=== PATIENT | male | born 1985 | race Caucasian/White ===

== ENCOUNTER 2020-09-24 09:19 | Emergency (ER) | payer MEDICARE, MEDICAID ==
--- NOTE | 2020-09-24 09:41 | EDM.PDOC ---
ED HPI GENERAL MEDICAL PROBLEM - General Chief Complaint: Abdominal Pain Stated Complaint: ABDOMINAL PAIN Time Seen by Provider: 09/24/20 09:36 Source of Information: Reports: Patient, EMS, RN. Denies: Old Records History Limitations: Reports: Other (no old records) - History of Present Illness INITIAL COMMENTS - FREE TEXT/NARRATIVE: 35 yo male here via EMS with a complaint of R sided abdominal pain. Got 100 mcg of Fentanyl IV per EMS en route. Has had some nausea, not currently. Sx's began about 7-8 hrs ago. The pain seems to be gradually worsening. No pHx of any abdominal surgeries. Does have a hx of heavy alcohol use. Had a normal BM recently. No fever. Onset: Gradual Onset Date: 09/24/20 Onset Time: 03:00 Duration: Hour(s):, Getting Worse Location: Reports: Abdomen Quality: Reports: Ache Severity: Moderate Improves with: Reports: None Worsens with: Reports: Other (time) Context: Reports: Other (See HPI) Associated Symptoms: Reports: Nausea/Vomiting (no vomiting). 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 below) (Fentanyl per EMS) Right Middle Abdomen Pain Score (Numeric/FACES): 7 - Related Data Allergies Allergy/AdvReac Type Severity Reaction Status Date / Time Sulfa (Sulfonamide Allergy Cannot Verified 09/24/20 09:30 Antibiotics) Remember Home Meds: Home Meds ARIPiprazole [Abilify] 2 mg PO DAILY 09/24/20 [History] Dextroamphetamine/Amphetamine [Adderall 20 mg Tablet] 20 mg PO DAILY 09/24/20 [History] PARoxetine [Paxil] 60 mg PO DAILY 09/24/20 [History] Zolpidem Tartrate [Ambien] 10 mg PO BEDTIME 09/24/20 [History] busPIRone [Buspar] 30 mg PO BID 09/24/20 [History] lamoTRIgine [Lamictal] 2.5 tab PO DAILY 09/24/20 [History] Past Medical History Gastrointestinal History: Reports: Irritable Bowel Syndrome Psychiatric History: Reports: Anxiety, Depression Social & Family History - Tobacco Use Tobacco Use Status *Q: Current Every Day Tobacco User Years of Tobacco use: 10 Packs/Tins Daily: 0.5 - Caffeine Use Caffeine Use: Reports: Coffee - Recreational Drug Use Recreational Drug Use: No ED ROS GENERAL - Review of Systems Review Of Systems: See Below Constitutional: Reports: No Symptoms HEENT: Reports: No Symptoms Respiratory: Reports: No Symptoms Cardiovascular: Reports: No Symptoms GI/Abdominal: Reports: Abdominal Pain, Nausea. Denies: Black Stool, Bloody St ool, Constipation, Diarrhea, Distension, Hematemesis, Hematochezia, Vomiting : Reports: No Symptoms Musculoskeletal: Reports: No Symptoms Skin: Reports: No Symptoms ED EXAM, GI/ABD - Physical Exam Exam: See Below Exam Limited By: No Limitations General Appearance: Alert, WD/WN, No Apparent Distress, Obese Eyes: Bilateral: Normal Appearance Ears: Normal External Exam, Normal Canal, Hearing Grossly Normal Nose: Normal Inspection, No Blood Throat/Mouth: Normal Inspection, Normal Lips, Normal Oropharynx, Normal Voice, No Airway Compromise Head: Atraumatic, Normocephalic Neck: Normal Inspection Respiratory/Chest: No Respiratory Distress, Lungs Clear, Normal Breath Sounds, No Accessory Muscle Use Cardiovascular: Regular Rate, Rhythm, No Edema GI/Abdominal Exam: Normal Bowel Sounds, Soft, No Distention, Tender (RUQ and epigastric areas). No: Non-Tender, Distended, Guarding, Rigid, Rebound Back Exam: Normal Inspection. No: CVA Tenderness (R), CVA Tenderness (L) Extremities: Normal Inspection, Normal Range of Motion, Non-Tender, No Pedal Edema Neurological: Alert, Oriented, CN II-XII Intact, Normal Cognition, No Motor/Sensory Deficits Psychiatric: Normal Affect, Normal Mood Skin Exam: Warm, Dry, Intact, Normal Color, No Rash Course - Vital Signs Last Recorded V/S: Last Vital Signs Temp 35.4 C L 09/24/20 09:22 Pulse 81 09/24/20 09:22 Resp 16 09/24/20 09:22 BP 153/85 H 09/24/20 09:22 Pulse Ox 95 09/24/20 09:22 - Orders/Labs/Meds Orders: Active Orders 24 hr Category Date Time Status Abdomen Ltd [US] Stat Exams 09/24/20 10:27 Ordered UA W/MICROSCOPIC [URIN] Stat Lab 09/24/20 09:35 Ordered Labs: Laboratory Tests 09/24/20 09/24/20 09/24/20 Range/Units 09:35 09:35 09:45 WBC 8.6 (4.5-11.0) K/uL RBC 5.01 (4.30-5.90) M/uL Hgb 15.3 H (12.0-15.0) g/dL Hct 46.3 (40.0-54.0) % MCV 92 (80-98) fL MCH 31 (27-31) pg MCHC 33 (32-36) % Plt Count 290 (150-400) K/uL Sodium 148 (140-148) mmol/L Potassium 4.0 (3.6-5.2) mmol/L Chloride 105 (100-108) mmol/L Carbon Dioxide 28 (21-32) mmol/L Anion Gap 14.9 H (5.0-14.0) mmol/L BUN 9 (7-18) mg/dL Creatinine 1.1 (0.8-1.3) mg/dL Est Cr Clr Drug Dosing 98.88 mL/min Estimated GFR (MDRD) > 60 (>60) Glucose 125 H (74-106) mg/dL Calcium 9.7 (8.5-10.1) mg/dL Total Bilirubin 0.4 (0.2-1.0) mg/dL AST 30 (15-37) U/L ALT 52 (12-78) U/L Alkaline Phosphatase 124 H (46-116) U/L C-Reactive Protein 0.40 H (0.0-0.3) mg/dL Total Protein 7.6 (6.4-8.2) g/dL Albumin 4.0 (3.4-5.0) g/dL Globulin 3.6 H (2.3-3.5) g/dL Albumin/Globulin Ratio 1.1 L (1.2-2.2) Lipase 106 (73-393) U/L Meds: Medications Discontinued Medications Generic Name Dose Route Start Last Admin Trade Name Freq PRN Reason Stop Dose Admin Al Hydroxide/Mg Hydroxide 15 0 ml 09/24/20 10:34 09/24/20 10:39 ml/ Lidocaine HCl 15 ml PO 09/24/20 10:35 30 ml ONETIME ONE Administration Ketorolac Tromethamine 30 mg 09/24/20 09:42 09/24/20 09:47 Ketorolac 30 Mg/Ml Sdv IVPUSH 09/24/20 09:43 30 mg ONETIME ONE Administration - Radiology Interpretation Free Text/Narrative:: GB ultrasound-small stone in neck - Re-Assessments/Exams Free Text/Narrative Re-Assessment/Exam: 09/24/20 10:53 Partial relief with IV Toradol, and a bit more relief with GI cocktail. Departure - Departure Time of Disposition: 11:50 Disposition: Home, Self-Care 01 Condition: Fair Clinical Impression: Gallstone (impacted) - Discharge Information *PRESCRIPTION DRUG MONITORING PROGRAM REVIEWED*: No *COPY OF PRESCRIPTION DRUG MONITORING REPORT IN PATIENT SARAH: No Instructions: Cholelithiasis, [id number] Referrals: PCP,None [Primary Care Provider] - Forms: ED Department Discharge Additional Instructions: Acetaminophen 1000 mg every 6 hrs as needed for pain relief. Eat clear liquids and a "NO FAT" diet. Call your doctor tomorrow to discuss a surgical referral if you would like to have your gallbladder taken out. Return as needed. Sepsis Event Note (ED) - Evaluation Sepsis Screening Result: No Definite Risk - Focused Exam Vital Signs: Vital Signs Temp Pulse Resp BP Pulse Ox 09/24/20 09:22 35.4 C L 81 16 153/85 H 95 - My Orders Last 24 Hours: My Active Orders 09/24/20 09:35 UA W/MICROSCOPIC [URIN] Stat 09/24/20 10:27 Abdomen Ltd [US] Stat - Assessment/Plan Last 24 Hours: My Active Orders 09/24/20 09:35 UA W/MICROSCOPIC [URIN] Stat 09/24/20 10:27 Abdomen Ltd [US] Stat
[2020-09-24] MEDS ORDERED: Ketorolac 30 MG/ML SDV IVPUSH ONE (09:42)
[2020-09-24] MEDS ORDERED: Alum Hydrox/Mag Hydrox/Simeth 15 ML, Lidocaine 2% 15 ML PO ONE ×2 (10:34)
--- NOTE | 2020-09-25 09:31 | US ---
Abdomen Ltd CLINICAL HISTORY: Right upper quadrant pain COMPARISON: None. TECHNIQUE: Real-time images were obtained through the right upper quadrant. FINDINGS: The liver is free of mass or biliary dilatation. There is normal hepatic echotexture. The gallbladder contains a small nonmobile echogenic focus in the gallbladder neck suspect for small stone or stones.. The common bile duct measures 3 mm. The pancreas is obscured. The right kidney has a normal appearance. The IVC is normal. IMPRESSION: Cholelithiasis
== END 2020-09-24 11:56 | disposition home or self-care (01) ==
LOC: JP.ED 09:19
DX: K80.20 Calculus of gallbladder without cholecystitis without obstruction (principal); Z72.0 Tobacco use; Z88.2 Allergy status to sulfonamides
CPT/HCPCS: 36415; 76705; 80053; 83690; 85027; 86140; 96374; 99284; A9270; J1885

== ENCOUNTER 2020-09-24 17:52 | Inpatient (IN) | payer MEDICARE, MEDICAID ==
--- NOTE | 2020-09-24 18:18 | PCM.HP.2 ---
H&P History of Present Illness - General Date of Service: 09/24/20 Source of Information: Patient, Old Records, Provider, RN Notes Reviewed History Limitations: Reports: No Limitations - History of Present Illness Initial Comments - Free Text/Narative: Mr. Westbrook is a 35-year-old gentleman who was admitted through the emergency department with right upper quadrant abdominal pain secondary to cholecystitis. He had been feeling well until early this morning when he noted onset of right upper quadrant abdominal pain described as a pressure. It gradually built in intensity till it was very severe, it did not radiate. Was associated with nausea and vomiting. He presented to the emergency department and on evaluation with ultrasound was noted to have a small stone in the neck of the gallbladder that was immobile. He was feeling somewhat better and was discharged home with instructions for outpatient follow-up. Pain reoccurred and he is come back to the emergency department. - Related Data Allergies/Adverse Reactions: Allergies Allergy/AdvReac Type Severity Reaction Status Date / Time Sulfa (Sulfonamide Allergy Cannot Verified 09/24/20 09:30 Antibiotics) Remember Home Medications: Home Meds ARIPiprazole [Abilify] 2 mg PO DAILY 09/24/20 [History] Cetirizine HCl [Allergy Relief] 10 mg PO DAILY 09/24/20 [History] Dextroamphetamine/Amphetamine [Adderall 20 mg Tablet] 20 mg PO DAILY 09/24/20 [History] Naproxen 375 mg PO DAILY 09/24/20 [History] Omeprazole 40 mg PO DAILY 09/24/20 [History] PARoxetine [Paxil] 60 mg PO DAILY 09/24/20 [History] Zolpidem Tartrate [Ambien] 10 mg PO BEDTIME 09/24/20 [History] busPIRone [Buspar] 30 mg PO BID 09/24/20 [History] lamoTRIgine [Lamictal] 2.5 tab PO DAILY 09/24/20 [History] Past Medical History Gastrointestinal History: Reports: Irritable Bowel Syndrome Psychiatric History: Reports: Anxiety, Depression Social & Family History - Caffeine Use Caffeine Use: Reports: Coffee H&P Review of Systems - Review of Systems: Review Of Systems: See Below General: Reports: Decreased Appetite. Denies: Fever, Chills HEENT: Reports: No Symptoms Pulmonary: Reports: No Symptoms Cardiovascular: Reports: No Symptoms Gastrointestinal: Reports: Abdominal Pain, Decreased Appetite, Distension, Nausea, Vomiting. Denies: Diarrhea, Difficulty Swallowing, Hematemesis, Hematochezia, Melena Genitourinary: Reports: No Symptoms Musculoskeletal: Reports: No Symptoms Skin: Reports: No Symptoms Psychiatric: Reports: No Symptoms Neurological: Reports: No Symptoms Hematologic/Lymphatic: Reports: No Symptoms Immunologic: Reports: No Symptoms Exam - Exam Exam: See Below - Exam Quality Assessment: DVT Prophylaxis General: Alert, Oriented, Cooperative, Moderate Distress HEENT: Conjunctiva Clear, Hearing Intact, Normal Nasal Septum, Posterior Pharynx Clear, Pupils Equal. No: Mucosa Moist & [place] Neck: Supple, Trachea Midline, +2 Carotid Pulse wo Bruit Lungs: Clear to Auscultation, Normal Respiratory Effort Cardiovascular: Regular Rate, Regular Rhythm, Normal S1, Normal S2. No: Systolic Murmur, Diastolic Murmur GI/Abdominal Exam: Soft, No Organomegaly, Tender. No: Distended, Guarding, Rigid, Rebound Back Exam: Normal Inspection, Full Range of Motion Extremities: Non-Tender, No Pedal Edema Skin: Warm, Dry, Intact Neurological: Cranial Nerves Intact, Strength Equal Bilateral, Normal Speech, Normal Tone, Sensation Intact Neuro Extensive - Mental Status: Alert, Oriented x3, Normal Mood/Affect, Normal Cognition, Memory Intact *Q Meaningful Use (ADM) - VTE Risk Assess *Q Each Risk Factor Represents 1 Point: Obesity ( BMI > 25 kg/m2) Total Score 1 Point Risk Factors: 1 Each Risk Factor Represents 2 Points: None Total Score 2 Point Risk Factors: 0 Each Risk Factor Represents 3 Points: None Total Score 3 Point Risk Factors: 0 Each Risk Factor Represents 5 Points: None Total Score 5 Point Risk Factors: 0 Venous Thromboembolism Risk Factor Score *Q: 1 Problem List Initiated/Reviewed/Updated: Yes Assessment/Plan Comment:: ASSESSMENT AND PLAN CHOLECYSTITIS-onset of pain earlier this morning. Improved during initial emergency department visit but now has reoccurred. Ultrasound shows evidence of stone at the neck of the gallbladder. -IV fluids for hydration -N.p.o. -Unasyn 1.5 g IV every 6 hours -Pain and nausea medication as needed -Dr. Tapia to see and assume care in a.m. BIPOLAR DISORDER-stable on current medications -Continue outpatient medications MAINTENANCE ISSUES -DVT prophylaxis; not indicated -GI prophylaxis; Protonix 40 mg IV daily -Haywood catheter; not indicated -Nutrition; n.p.o. -Nicotine dependence; nicotine patch CODE STATUS-FULL CODE ADMISSION STATUS-patient will be admitted to inpatient status, expect at least a 2 night hospital stay for evaluation and management of problems as outlined above. At the time of this admission I do not reasonably expected evaluation and management of this problem will require more than a 96 hour hospital stay. DISPOSITION-anticipate discharge to home after the hospital stay. PRIMARY CARE PROVIDER-Dr. Wiseman - Mortality Measure Prognosis:: Good
[2020-09-24] MEDS ORDERED: Polyethylene Glycol 3350 Powder 17 GM Packet PO PRN (18:26)
[2020-09-24] MEDS ORDERED: Sodium Chloride 0.9% 10 ML Syringe FLUSH PRN (18:26)
[2020-09-24] MEDS ORDERED: Ondansetron 4 MG/2 ML SDV IV PRN (18:26)
[2020-09-24] MEDS: Lactated Ringers 1,000 ML IV SCH (18:46)
[2020-09-24] MEDS: Pantoprazole 40 MG Vial IVPUSH SCH (18:47)
[2020-09-24] MEDS: HYDROmorphone 0.5 MG/0.5 ML Syringe IVPUSH PRN ×2 (18:49→21:38)
[2020-09-24] MEDS: Nicotine 14 MG/24 Hr Patch TRDERM SCH (18:49)
[2020-09-24] MEDS: Ampicillin/Sulbactam Na 3 GM in Sodium Chloride 0.9% 100 ML IV SCH (19:30)
[2020-09-24] MEDS: busPIRone 10 MG Tab PO SCH (21:22)
[2020-09-25] MEDS: HYDROmorphone 0.5 MG/0.5 ML Syringe IVPUSH PRN ×2 (02:00→07:40)
[2020-09-25] MEDS: Acetaminophen 325 MG Tab PO PRN ×2 (02:00→07:24)
[2020-09-25] MEDS: Lactated Ringers 1,000 ML IV SCH (02:07)
[2020-09-25] MEDS: Ampicillin/Sulbactam Na 3 GM in Sodium Chloride 0.9% 100 ML IV SCH ×4 (03:45→21:03)
[2020-09-25 05:07] LABS: CORONAVIRUS COVID-19 NAA NEGATIVE (NEGATIVE)
[2020-09-25] MEDS ORDERED: hydrOXYzine HCL 100 MG/2 ML SDV IM ONE (08:00)
[2020-09-25] MEDS ORDERED: Amphetamine/Dextroamphetamine Salts 10 MG Tab PO SCH (08:00)
--- NOTE | 2020-09-25 08:19 | PN ---
DATE OF SERVICE: 09/25/2020 SUBJECTIVE: Karely was asked to be seen by Troy Dumont MD, due to right upper quadrant abdominal pain secondary to cholecystitis and a small stone is in the neck of the gallbladder that was immobile. Karely states he went to the emergency room for increased pain, was evaluated, and then he was to see a surgeon in the clinic later in the week. was readmitted to the emergency department and then admitted to the hospital because when he got home, the pain increased and he was not able to handle it at home. He was admitted to [facility] and a consult was requested for cholecystitis and cholelithiasis. Karely states yesterday was the only time that he has ever had any pain in his right upper quadrant. He reports he has a headache now because of no caffeine. He is using Dilaudid for pain. Currently, n.p.o. REVIEW OF SYSTEMS: Remainder of review of systems negative for any pertinent positives and negatives. OBJECTIVE: GENERAL: Karely is a 35-year-old male, alert and orientated. VITAL SIGNS: Height 5 feet 11 inches, weight is 262. TPR is 97.9, 82, 15, blood pressure 101/59. HEENT: Negative. NECK: Supple. HEART: Regular rate and rhythm. LUNGS: Clear. ABDOMEN: Soft, nontender. EXTREMITIES: Without peripheral edema. NEUROLOGIC: Intact. PSYCHIATRIC: History of bipolar, but controlled. Mood and affect appropriate. ASSESSMENT: Cholecystitis, cholelithiasis, stone in neck of gallbladder. PLAN: 1. Schedule and have consent signed for laparoscopic possible open cholecystectomy, general anesthesia, TAP block, 09/25/2020. Case to follow. Richard Tapia MD, surgeon. 2. He may have his morning medication with sips of water. 3. Orders to be written postoperatively. 4. We will evaluate p.r.n. or in a.m. Yanelis Zarate PA-C /[id number]
[2020-09-25] MEDS ORDERED: Succinylcholine 200 MG/10 ML MDV ONE (08:32)
[2020-09-25] MEDS ORDERED: fentaNYL 250 MCG/5 ML SDV ONE ×2 (08:32→10:56)
[2020-09-25] MEDS ORDERED: Glycopyrrolate 0.2 MG/ML 5 ML MDV ONE (08:32)
[2020-09-25] MEDS ORDERED: Dexamethasone 4 MG/ML SDV ONE (08:32)
[2020-09-25] MEDS ORDERED: Propofol 200 MG/20 ML SDV ONE (08:32)
[2020-09-25] MEDS ORDERED: Ondansetron 4 MG/2 ML SDV ONE (08:32)
[2020-09-25] MEDS ORDERED: Rocuronium 50 MG/5 ML Vial ONE (08:32)
[2020-09-25] MEDS ORDERED: Neostigmine Methylsulfate 1 MG/ML 5 ML Syringe ONE (08:32)
[2020-09-25] MEDS ORDERED: Bupivacaine 0.5%/EPINEPHrine 1:200,000 50 ML MDV ONE (09:46)
[2020-09-25] MEDS ORDERED: Lactated Ringers 1,000 ML ONE (10:55)
[2020-09-25] MEDS ORDERED: fentaNYL 100 MCG/2 ML SDV ONE (11:21)
[2020-09-25] MEDS ORDERED: Labetalol 20 MG/4 ML Syringe ONE (11:40)
[2020-09-25] MEDS ORDERED: Morphine 4 MG/ML Syringe IVPUSH PRN (13:00)
[2020-09-25] MEDS ORDERED: Morphine 2 MG/ML SYRINGE IVPUSH PRN (13:00)
[2020-09-25] MEDS: PARoxetine 20 MG Tab PO SCH (13:01)
[2020-09-25] MEDS: lamoTRIgine 100 MG Tab PO SCH (13:01)
[2020-09-25] MEDS: busPIRone 10 MG Tab PO SCH ×2 (13:01→21:03)
[2020-09-25] MEDS: Cetirizine 10 MG Tab PO SCH (13:01)
[2020-09-25] MEDS: Amphetamine/Dextroamphetamine Salts 10 MG Cap.ER PO SCH (13:02)
[2020-09-25] MEDS: Nicotine 14 MG/24 Hr Patch TRDERM SCH ×2 (13:02→13:03)
[2020-09-25] MEDS: ARIPiprazole 10 MG Tab PO SCH (13:02)
[2020-09-25] MEDS: Acetaminophen/HYDROcodone 325-5 MG Tab PO PRN ×3 (13:10→21:40)
[2020-09-25] MEDS: Dextrose 5%-Lactated Ringers 1,000 ML IV SCH (14:59)
[2020-09-25] MEDS: Pantoprazole 40 MG Vial IVPUSH SCH (17:30)
[2020-09-25] MEDS: Zolpidem 5 MG Tab PO SCH (21:02)
[2020-09-26] MEDS: Dextrose 5%-Lactated Ringers 1,000 ML IV SCH (00:30)
[2020-09-26] MEDS: Acetaminophen/HYDROcodone 325-5 MG Tab PO PRN ×2 (01:32→05:33)
[2020-09-26] MEDS: Ampicillin/Sulbactam Na 3 GM in Sodium Chloride 0.9% 100 ML IV SCH ×4 (03:46→22:55)
[2020-09-26] MEDS ORDERED: Albuterol/Ipratropium 3.0-0.5 MG/3 ML Neb Soln NEB PRN (07:36)
[2020-09-26] MEDS ORDERED: Dextrose 5%-Lactated Ringers 1,000 ML IV SCH (07:40)
[2020-09-26] MEDS: Cyclobenzaprine 10 MG Tab PO PRN ×3 (08:00→22:54)
[2020-09-26] MEDS: Amphetamine/Dextroamphetamine Salts 10 MG Cap.ER PO SCH (08:01)
[2020-09-26] MEDS: Albuterol/Ipratropium 3.0-0.5 MG/3 ML Neb Soln NEB SCH ×3 (08:10→20:20)
[2020-09-26] MEDS: ARIPiprazole 10 MG Tab PO SCH (09:24)
[2020-09-26] MEDS: Cetirizine 10 MG Tab PO SCH (09:25)
[2020-09-26] MEDS: busPIRone 10 MG Tab PO SCH ×2 (09:25→22:53)
[2020-09-26] MEDS: PARoxetine 20 MG Tab PO SCH (09:25)
[2020-09-26] MEDS: lamoTRIgine 100 MG Tab PO SCH (09:26)
[2020-09-26] MEDS: oxyCODONE 5 MG Tab PO PRN ×4 (09:35→22:54)
--- NOTE | 2020-09-26 11:06 | PN ---
DATE OF SERVICE: 09/26/2020 SUBJECTIVE: Karely is postoperative day 1 following laparoscopic cholecystectomy. He has had 3 L of oxygen on. On it, his O2 is low 90s. If he walks without his oxygen or takes oxygen off, his oximetry is in the low 80. Oral intake 1480, out put measured as 400. SHARAD drain 400+. His SHARAD drain put out 40 mL of a clear-pink serosanguineous. Lab test results reviewed. He states pain is not controlled with the Sidman. Requesting something else. REVIEW OF SYSTEMS: Remainder of review of systems negative for any pertinent positives or negatives. OBJECTIVE: GENERAL: Karely Westbrook is a 35-year-old male. He is alert and orientated. VITAL SIGNS: TPR is 97.2, 85, 16, and blood pressure is 118/63. HEENT: Negative. NECK: Supple. HEART: Regular rate and rhythm. LUNGS: Clear. ABDOMEN: Dressing is dry and intact. Abdominal binder is on. EXTREMITIES: Without peripheral edema. ASSESSMENT: 1. Diagnostic laparoscopy with;. a. Cholecystectomy. b. Drainage of pericholecystic abscess. c. Repair of incarcerated umbilical hernia. 2. Hypoxia postoperatively. Oximetry with oxygen low 90s, and without oxygen low 80s. POSTOPERATIVE DIAGNOSES: 1. Acute cholecystitis (cholelithiasis with pericholecystic abscess). 2. Incarcerated umbilical hernia. Date of procedure 09/25/2020. Surgeon: Richard Tapia MD. PLAN: 1. Remove packing from upper abdominal, below the sternum trocar site, and cover with 4 x 4 gauze. Do not replace packing. 2. DuoNeb q.i.d. and p.r.n. 3. Discontinue SHARAD drain. 4. Decrease IV rate to 100 mL per hour. 5. Oxycodone 5 mg q.4 hours p.r.n. pain. 6. Discontinue Sidman. 7. Flexeril 10 mg q.6 hours p.r.n. muscle spasms. 8. Encouraged use of incentive spirometer and ambulation. 9. We will evaluate p.r.n. or in the a.m. Yanelis Zarate PA-C /[id number]
[2020-09-26] MEDS ORDERED: Sodium Chloride 0.9% 10 ML Syringe FLUSH ONE (11:41)
[2020-09-26] MEDS ORDERED: Sodium Chloride 0.9% 100 ML IV SCH (11:45)
[2020-09-26] MEDS ORDERED: Iopamidol 755 Mg/ML 100 ML Bottle IV SCH (11:45)
[2020-09-26] MEDS ORDERED: Furosemide 20 MG/2 ML VIAL IVPUSH ONE ×2 (11:45→18:00)
[2020-09-26] MEDS ORDERED: Sodium Chloride 0.9% 10 ML Syringe IV PRN (12:49)
[2020-09-26] MEDS: Docusate Sodium 100 MG Cap PO SCH (13:06)
[2020-09-26] MEDS ORDERED: Calcium Carbonate 500 MG Tab.Chew PO PRN (13:43)
--- NOTE | 2020-09-26 14:03 | CT ---
Ang Chest CLINICAL HISTORY: History of covid, hypoxia TECHNIQUE: Thin section axial contiguous tomographic sections were taken through the chest after bolus IV iodinated contrast administration. Coronal and sagittal images were reconstructed. Auto dosage reduction and iterative reconstruction techniques employed. FINDINGS: There is a 3.3 x 1.7 x 1.3 cm soft tissue density or area of consolidation in the right upper lobe. There is some streaky infiltrate and atelectasis in the right midlung field. There is a there are moderate-sized areas of consolidation in both lower lobes. There is some streaky infiltrate and atelectasis in the left perihilar region. There are some groundglass opacities bilaterally. Pulmonary arteries and pulmonary are free of filling defects. There is less than optimal opacification of the lower lobe arteries bilaterally likely related to consolidations. The aorta has normal contour. There are no significant pleural effusions. No mediastinal mass or lymphadenopathy is identified. IMPRESSION: No evidence of pulmonary embolus Moderate-sized bilateral lower lobe consolidations. Patchy infiltrate in both mid lung donnelly Ovoid opacification in the right upper lobe may represent infiltrate and/or consolidation. Follow-up noncontrast CT recommended after course of treatment to ensure resolution and exclude underlying lesion.
--- NOTE | 2020-09-26 15:15 | PCM.CONS ---
H&P History of Present Illness - General Date of Service: 09/26/20 Admit Problem/Dx: Admission Diagnosis/Problem Admission Diagnosis/Problem Cholecystitis Source of Information: Patient, Provider History Limitations: Reports: No Limitations - History of Present Illness Initial Comments - Free Text/Narative: HPI: I was asked by Dr Tapia to see Karely regarding acute respiratory failure with hypoxia. He was admitted 2 days ago for management of acute cholecystitis and has since had a laparoscopic cholecystectomy. He has been hypoxic since shortly after admission and even prior to surgery. He has had progression of his respiratory failure with increasing supplemental oxygen requirements. Patient reports that he has been a little short of breath ever since he had Co vid back in March. He has had intermittent increases with normal periods in between since that time. He did start smoking again about 3 months ago. He reports over the past week he has had a mild to moderate nonproductive cough and increased shortness of breath. He had some subjective fevers during that time. He also developed severe right upper quadrant pain during that time and was diagnosed with acute cholecystitis 2 days ago. He has not previously had difficulties with his lungs other than pneumonia when he was a baby. He is not aware of any sick contacts. He did require a small amount of supplemental oxygen prior to surgery but has had increasing requirements since surgery. A CT scan of the chest was obtained today and did not show evidence for pulmonary embolism but did show bilateral lower lung infiltrates as well as a right upper lung infiltrate. Right Abdomen Pain Score (Numeric/FACES): 6 - Related Data Allergies/Adverse Reactions: Allergies Allergy/AdvReac Type Severity Reaction Status Date / Time Sulfa (Sulfonamide Allergy Cannot Verified 09/24/20 09:30 Antibiotics) Remember Home Medications: Home Meds ARIPiprazole [Abilify] 2 mg PO DAILY 09/24/20 [History] Cetirizine HCl [Allergy Relief] 10 mg PO DAILY 09/24/20 [History] Naproxen 375 mg PO DAILY 09/24/20 [History] Omeprazole 40 mg PO DAILY 09/24/20 [History] PARoxetine [Paxil] 60 mg PO DAILY 09/24/20 [History] Zolpidem Tartrate [Ambien] 10 mg PO BEDTIME 09/24/20 [History] busPIRone [Buspar] 30 mg PO BID 09/24/20 [History] lamoTRIgine [Lamictal] 2.5 tab PO DAILY 09/24/20 [History] Amphetamine/Dextroamphetamine [Adderall XR] 20 mg PO DAILY 09/25/20 [History] Past Medical History HEENT History: Reports: Allergic Rhinitis Cardiovascular History: Reports: None Respiratory History: Reports: None Gastrointestinal History: Reports: Irritable Bowel Syndrome Genitourinary History: Reports: None Musculoskeletal History: Reports: None Neurological History: Reports: None Psychiatric History: Reports: ADHD, Anxiety, Bipolar, Depression Endocrine/Metabolic History: Reports: None Hematologic History: Reports: None Immunologic History: Reports: None Oncologic (Cancer) History: Reports: None Dermatologic History: Reports: None - Infectious Disease History Infectious Disease History: Reports: None - Past Surgical History Head Surgeries/Procedures: Reports: None HEENT Surgical History: Reports: None Cardiovascular Surgical History: Reports: None Respiratory Surgical History: Reports: None GI Surgical History: Reports: None Male Surgical History: Reports: None Endocrine Surgical History: Reports: None Neurological Surgical History: Reports: None Musculoskeletal Surgical History: Reports: None Oncologic Surgical History: Reports: None Dermatological Surgical History: Reports: None Social & Family History - Family History Respiratory: Reports: COPD - Tobacco Use Tobacco Use Status *Q: Current Every Day Tobacco User Years of Tobacco use: 20 Packs/Tins Daily: 0.5 Used Tobacco, but Quit: No Second Hand Smoke Exposure: No - Caffeine Use Caffeine Use: Reports: Coffee - Recreational Drug Use Recreational Drug Use: No H&P Review of Systems - Review of Systems: Review Of Systems: See Below Free Text/Narrative: A complete 12 point review of systems was obtained. Pertinent positives and negatives are noted in the history of present illness. All other systems were reviewed and were negative except as noted. Exam - Exam Exam: See Below - Vital Signs Vital Signs: Last Vital Signs Temp 36.1 C 09/26/20 11:00 Pulse 95 09/26/20 11:00 Resp 16 09/26/20 11:00 BP 112/44 L 09/26/20 11:00 Pulse Ox 83 L 09/26/20 13:34 Weight: 118.841 kg - Exam Quality Assessment: Supplemental Oxygen General: Alert, Oriented, Cooperative. No: Mild Distress HEENT: Conjunctiva Clear, Mucosa Moist & [place] Neck: Supple, Trachea Midline Lungs: Normal Respiratory Effort, Crackles (Few at both bases), Wheezing (Rare end expiratory on the right), Other (Patient did get noticeably short of breath walking 10 feet from the bathroom to the bed) Cardiovascular: Regular Rate, Regular Rhythm. No: Systolic Murmur GI/Abdominal Exam: Soft, No Distention Back Exam: Normal Inspection, Full Range of Motion Extremities: No Pedal Edema. No: Increased Warmth Peripheral Pulses: 2+: Dorsalis Pedis (L), Dorsalis Pedis (R) Skin: Warm, Dry Neuro Extensive - Mental Status: Alert, Oriented x3, Nl Response to Commands Neuro Extensive - Motor, Sensory, Reflexes: No: Dysarthria, Abnormal Motor, Tremor Psychiatric: Alert, Normal Affect - Patient Data Lab Results Last 24 hrs: Laboratory Results - last 24 hr 09/26/20 09/26/20 Range/Units 04:23 04:23 WBC 12.1 H (4.5-11.0) K/uL RBC 4.23 L (4.30-5.90) M/uL Hgb 13.0 (12.0-15.0) g/dL Hct 40.5 (40.0-54.0) % MCV 96 (80-98) fL MCH 31 (27-31) pg MCHC 32 (32-36) % Plt Count 282 (150-400) K/uL Neut % (Auto) 87 H (36-66) % Lymph % (Auto) 9 L (24-44) % [place] % (Auto) 4 (2-6) % Eos % (Auto) 0 L (2-4) % Baso % (Auto) 0 (0-1) % Total Bilirubin 0.3 D (0.2-1.0) mg/dL Alkaline Phosphatase 115 (46-116) U/L Result Diagrams: 09/26/20 04:23 09/25/20 04:00 Serafin Results Last 24 hrs: Microbiology 09/25/20 12:36 Gram Stain - Final Gallbladder Wound Culture - Preliminary Gram Positive Rods Anaerobic Culture - Preliminary NO GROWTH AFTER 1 DAY Imaging Impressions Last 24 hrs: CT pulmonary angiogram-images were personally reviewed-no evidence for pulmonary embolism. He does have a small right upper lung infiltrate as well as mild to moderate lower lung consolidations concerning for infection. No obvious mass. Heart size was normal. Sepsis Event Note - Evaluation Sepsis Screening Result: Sepsis Risk - Focused Exam Vital Signs: Vital Signs Temp Pulse Resp BP Pulse Ox 09/26/20 13:34 83 L 09/26/20 11:00 36.1 C 95 16 112/44 L 91 L 09/26/20 07:43 84 L 09/26/20 07:00 36.2 C 85 16 118/63 86 L 09/26/20 05:00 90 L Consult PN Assessment/Plan POD#: 1 Problem List Initiated/Reviewed/Updated: Yes My Orders Last 24 Hours: My Active Orders 09/26/20 15:15 Azithromycin [Zithromax] 500 mg PO Q24H 09/26/20 18:00 Furosemide [Lasix] 20 mg IVPUSH ONETIME ONE 09/27/20 05:00 BASIC METABOLIC PANEL,BMP [CHEM] Timed CBC W/O DIFF,HEMOGRAM [HEME] Timed (1) Plan: ASSESSMENT AND RECOMMENDATIONS- Probable bilateral lower lung pneumonia-complicated by acute respiratory failure with hypoxia. Given the development of hypoxia shortly after admission I suspect he had a community-acquired pneumonia brewing prior to surgery. Symptoms were probably overshadowed by the bad gallbladder. He has had progression of respiratory failure since admission. No high risk exposures. He did have Covid about 6 months ago but has done relatively well since that time. -Add a azithromycin -Continue current antibiotics -Continue nebulizers -Additional dose of furosemide this evening and possibly tomorrow morning -Supplement oxygen as needed, wean as able Acute cholecystitis due to cholelithiasis-status post laparoscopic cholecystectomy and seems to be doing well from a surgical standpoint. Tobacco dependence-recently started smoking again about 3 months ago. -encourage cessation Desean Garrett MD Requesting Provider: Dr Tapia Date Consult Requested: 09/26/20 Reason for Consult: Acute respiratory failure with hypoxia Patient History Reviewed: Yes Admission H&P Reviewed: Yes Notified Requestor: Yes Time Spent (in minutes): 45
[2020-09-26] MEDS: Azithromycin 250 MG Tab PO SCH (16:10)
[2020-09-26] MEDS: Pantoprazole 40 MG Tab.CR PO SCH (16:10)
[2020-09-26] MEDS ORDERED: Acetaminophen 325 MG Tab PO PRN (19:07)
[2020-09-26] MEDS: Zolpidem 5 MG Tab PO SCH (22:53)
[2020-09-27] MEDS: Albuterol/Ipratropium 3.0-0.5 MG/3 ML Neb Soln NEB SCH ×4 (02:05→22:46)
[2020-09-27] MEDS: oxyCODONE 5 MG Tab PO PRN ×4 (02:26→22:38)
[2020-09-27] MEDS: Ampicillin/Sulbactam Na 3 GM in Sodium Chloride 0.9% 100 ML IV SCH ×4 (04:19→22:00)
[2020-09-27] MEDS: Cyclobenzaprine 10 MG Tab PO PRN ×2 (07:51→22:39)
[2020-09-27] MEDS: Ibuprofen 800 MG Tab PO SCH ×3 (07:51→18:25)
[2020-09-27] MEDS: Amphetamine/Dextroamphetamine Salts 10 MG Cap.ER PO SCH (07:59)
--- NOTE | 2020-09-27 09:21 | PCM.CONSN ---
- General Info Date of Service: 09/27/20 Subjective Update: There were no acute events overnight. Shortness of breath is a little better today. He has a loose and occasionally productive cough. No fevers. Abdominal pain is slightly increased today. No bowel movement for 3 days. Still requiring supplemental oxygen though slightly less today. Functional Status: Reports: Pain Controlled, Tolerating Diet - Review of Systems Pulmonary: Reports: Shortness of Breath, Cough - Patient Data Vitals - Most Recent: Last Vital Signs Temp 36.6 C 09/27/20 06:00 Pulse 88 09/27/20 07:25 Resp 18 09/27/20 06:00 BP 160/79 H 09/27/20 06:00 Pulse Ox 91 L 09/27/20 07:06 Weight - Most Recent: 120.928 kg I&O - Last 24 Hours: Intake & Output 09/26/20 09/27/20 09/27/20 22:59 06:59 14:59 Intake Total 700 250 Output Total 450 Balance 250 250 Lab Results Last 24 Hours: Laboratory Results - last 24 hr 09/27/20 09/27/20 Range/Units 05:35 05:35 WBC 9.0 (4.5-11.0) K/uL RBC 4.35 (4.30-5.90) M/uL Hgb 13.2 (12.0-15.0) g/dL Hct 42.0 (40.0-54.0) % MCV 97 (80-98) fL MCH 30 (27-31) pg MCHC 31 L (32-36) % Plt Count 246 (150-400) K/uL Sodium 149 H (140-148) mmol/L Potassium 3.1 L (3.6-5.2) mmol/L Chloride 107 (100-108) mmol/L Carbon Dioxide 31 (21-32) mmol/L Anion Gap 14.1 H (5.0-14.0) mmol/L BUN 9 (7-18) mg/dL Creatinine 1.2 (0.8-1.3) mg/dL Est Cr Clr Drug Dosing 90.64 mL/min Estimated GFR (MDRD) > 60 (>60) Glucose 111 H (74-106) mg/dL Calcium 8.8 (8.5-10.1) mg/dL Serafin Results Last 24 Hours: Microbiology 09/25/20 12:36 Gram Stain - Final Gallbladder Wound Culture - Final Gram Positive Rods Anaerobic Culture - Preliminary NO GROWTH AFTER 2 DAYS Med Orders - Current: Current Medications Acetaminophen (Acetaminophen 325 Mg Tab) 650 mg PO Q4H PRN PRN Reason: Pain Albuterol/Ipratropium (Albuterol/Ipratropium 3.0-0.5 Mg/3 Ml Neb Soln) 3 ml NEB Q6H [facility] Last Admin: 09/27/20 07:25 Dose: 3 ml Documented by: Albuterol/Ipratropium (Albuterol/Ipratropium 3.0-0.5 Mg/3 Ml Neb Soln) 3 ml NEB Q4H PRN PRN Reason: Dyspnea Amphetamine/Dextroamphetamine (Amphetamine/Dextroamphetamine Salts 10 Mg Cap.Er) 20 mg PO DAILY@0800 [facility] Last Admin: 09/27/20 07:59 Dose: Not Given Documented by: Aripiprazole (Aripiprazole 10 Mg Tab) 2.5 mg PO DAILY [facility] Last Admin: 09/26/20 09:24 Dose: 2.5 mg Documented by: Azithromycin (Azithromycin 250 Mg Tab) 500 mg PO Q24H [facility] Stop: 09/30/20 15:31 Last Admin: 09/26/20 16:10 Dose: 500 mg Documented by: Bisacodyl (Bisacodyl 5 Mg Tab) 10 mg PO BID [facility] Buspirone HCl (Buspirone 10 Mg Tab) 30 mg PO BID [facility] Last Admin: 09/26/20 22:53 Dose: 30 mg Documented by: Calcium Carbonate/Glycine (Calcium Carbonate 500 Mg Tab.Chew) 1,000 mg PO Q2H PRN PRN Reason: Indigestion Last Admin: 09/26/20 14:00 Dose: 1,000 mg Documented by: Cetirizine HCl (Cetirizine 10 Mg Tab) 10 mg PO DAILY [facility] Last Admin: 09/26/20 09:25 Dose: 10 mg Documented by: Cyclobenzaprine HCl (Cyclobenzaprine 10 Mg Tab) 10 mg PO Q6H PRN PRN Reason: muscle spasms Last Admin: 09/27/20 07:51 Dose: 10 mg Documented by: Docusate Sodium (Docusate Sodium 100 Mg Cap) 100 mg PO DAILY [facility] Last Admin: 09/26/20 13:06 Dose: 100 mg Documented by: Ampicillin Sodium/Sulbactam (Sodium 3 gm/ Sodium Chloride) 100 mls @ 200 mls/hr IV Q6HR [facility] Last Admin: 09/27/20 04:19 Dose: 200 mls/hr Documented by: Aztreonam 1 gm/ Sodium (Chloride) 50 mls @ 100 mls/hr IV Q8H [facility] Last Admin: 09/27/20 02:05 Dose: 100 mls/hr Documented by: Ibuprofen (Ibuprofen 800 Mg Tab) 800 mg PO Q6H [facility] Last Admin: 09/27/20 07:51 Dose: 800 mg Documented by: Lamotrigine (Lamotrigine 100 Mg Tab) 500 mg PO DAILY [facility] Last Admin: 09/26/20 09:26 Dose: 500 mg Documented by: Morphine Sulfate (Morphine 2 Mg/Ml Syringe) 2 mg IVPUSH Q2H PRN PRN Reason: MODERATE PAIN Last Admin: 09/26/20 00:23 Dose: 2 mg Documented by: Morphine Sulfate (Morphine 4 Mg/Ml Syringe) 4 mg IVPUSH Q2H PRN PRN Reason: SEVERE PAIN Last Admin: 09/25/20 15:07 Dose: 4 mg Documented by: Ondansetron HCl (Ondansetron 4 Mg/2 Ml Sdv) 4 mg IV Q4H PRN PRN Reason: Nausea/Vomiting Last Admin: 09/24/20 19:28 Dose: 4 mg Documented by: Oxycodone HCl (Oxycodone 5 Mg Tab) 5 mg PO Q4H PRN PRN Reason: Pain Last Admin: 09/27/20 07:52 Dose: 5 mg Documented by: Pantoprazole Sodium (Pantoprazole 40 Mg Tab.Cr) 40 mg PO Q24H [facility] Last Admin: 09/26/20 16:10 Dose: 40 mg Documented by: Paroxetine HCl (Paroxetine 20 Mg Tab) 60 mg PO DAILY [facility] Last Admin: 09/26/20 09:25 Dose: 60 mg Documented by: Potassium Chloride (Potassium Chloride 20 Meq Tab.Er) 40 meq PO TID [facility] Stop: 09/27/20 23:59 Sodium Chloride (Sodium Chloride 0.9% 10 Ml Syringe) 10 ml IV ASDIRECTED PRN 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 Zolpidem Tartrate (Zolpidem 5 Mg Tab) 10 mg PO BEDTIME [facility] Last Admin: 09/26/20 22:53 Dose: 10 mg Documented by: Discontinued Medications Acetaminophen (Acetaminophen 325 Mg Tab) 650 mg PO Q4H PRN PRN Reason: Pain (Mild 1-3)/fever Last Admin: 09/25/20 07:24 Dose: 650 mg Documented by: Hydrocodone Bitart/Acetaminophen (Acetaminophen/Hydrocodone 325-5 Mg Tab) 1 - 2 tab PO Q4H PRN PRN Reason: PAIN Last Admin: 09/26/20 05:33 Dose: 2 tab Documented by: Aztreonam (Aztreonam 1 Gm Vial) Confirm Administered Dose 1 gm .ROUTE .STK-MED ONE Stop: 09/25/20 11:38 Last Admin: 09/25/20 11:30 Dose: 1 gm Documented by: Bupivacaine HCl/Epinephrine Bitart (Bupivacaine 0.5%/Epinephrine 1:200,000 50 Ml Mdv) Confirm Administered Dose 50 ml .ROUTE .STK-MED ONE Stop: 09/25/20 09:47 Last Admin: 09/25/20 11:45 Dose: 20 ml Documented by: Ropivacaine 60 ml/Dexamethasone 8 mg/Epinephrine HCl 0.4 mg/ Sodium Chloride 17.6 ml 0 ml NERVRT ASDIRECTED [facility] Last Admin: 09/25/20 11:13 Dose: 80 syringe Documented by: Dexamethasone (Dexamethasone 4 Mg/Ml Sdv) Confirm Administered Dose 4 mg .ROUTE .STK-MED ONE Stop: 09/25/20 08:33 Fentanyl (Fentanyl 250 Mcg/5 Ml Sdv) Confirm Administered Dose 250 mcg .ROUTE .STK-MED ONE Stop: 09/25/20 08:33 Fentanyl (Fentanyl 250 Mcg/5 Ml Sdv) Confirm Administered Dose 250 mcg .ROUTE .STK-MED ONE Stop: 09/25/20 10:57 Fentanyl (Fentanyl 100 Mcg/2 Ml Sdv) Confirm Administered Dose 100 mcg .ROUTE .STK-MED ONE Stop: 09/25/20 11:22 Furosemide (Furosemide 20 Mg/2 Ml Vial) 20 mg IVPUSH ONETIME ONE Stop: 09/26/20 11:46 Last Admin: 09/26/20 13:06 Dose: 20 mg Documented by: Furosemide (Furosemide 20 Mg/2 Ml Vial) 20 mg IVPUSH ONETIME ONE Stop: 09/26/20 18:01 Last Admin: 09/26/20 17:17 Dose: 20 mg Documented by: Glycopyrrolate (Glycopyrrolate 0.2 Mg/Ml 5 Ml Mdv) Confirm Administered Dose 1 mg .ROUTE .[facility] ONE Stop: 09/25/20 08:33 Hydromorphone HCl (Hydromorphone 0.5 Mg/0.5 Ml Syringe) 0.5 mg IVPUSH Q2H PRN PRN Reason: Pain Last Admin: 09/25/20 07:40 Dose: 0.5 mg Documented by: Hydroxyzine HCl (Hydroxyzine Hcl 100 Mg/2 Ml Sdv) 100 mg IM ONETIME ONE Stop: 09/25/20 08:01 Last Admin: 09/25/20 12:59 Dose: Not Given Documented by: Lactated Ringer's (Ringers, Lactated) 1,000 mls @ 125 mls/hr IV ASDIRECTED [facility] Last Admin: 09/25/20 02:07 Dose: 125 mls/hr Documented by: Lactated Ringer's (Ringers, Lactated) Confirm Administered Dose 1,000 mls @ as directed .ROUTE .[facility] ONE Stop: 09/25/20 10:56 Dextrose/Lactated Ringer's (Dextrose 5%-Lactated Ringers) 1,000 mls @ 125 mls/hr IV ASDIRECTED [facility] Last Admin: 09/26/20 00:30 Dose: 125 mls/hr Documented by: Dextrose/Lactated Ringer's (Dextrose 5%-Lactated Ringers) 1,000 [facility]ls [facility] Last Admin: 09/26/20 10:09 Dose: 100 mls/hr Documented by: Sodium Chloride (Normal Saline) 100 mls @ 4 mls/sec IV ASDIRECTED [facility] Stop: 09/26/20 19:00 Last Admin: 09/26/20 12:48 Dose: 4 mls/sec Documented by: Iopamidol (Iopamidol 755 Mg/Ml 100 Ml Bottle) 100 ml IV . DIRECTED [facility] Stop: 09/26/20 19:00 Last Admin: 09/26/20 12:48 Dose: 100 ml Documented by: Labetalol HCl (Labetalol 20 Mg/4 Ml Syringe) Confirm Administered Dose 20 mg .ROUTE .[facility] ONE Stop: 09/25/20 11:41 Neostigmine Methylsulfate (Neostigmine Methylsulfate 1 Mg/Ml 5 Ml Syringe) Confirm Administered Dose 5 mg .ROUTE .STK-MED ONE Stop: 09/25/20 08:33 Nicotine (Nicotine 14 Mg/24 Hr Patch) 14 mg TRDERM DAILY [facility] Last Admin: 09/25/20 13:03 Dose: Not Given Documented by: Ondansetron HCl (Ondansetron 4 Mg/2 Ml Sdv) Confirm Administered Dose 4 mg .ROUTE .STK-MED ONE Stop: 09/25/20 08:33 Pantoprazole Sodium (Pantoprazole 40 Mg Vial) 40 mg IVPUSH Q24H [facility] Last Admin: 09/25/20 17:30 Dose: 40 mg Documented by: Polyethylene Glycol (Polyethylene Glycol 3350 Powder 17 Gm Packet) 17 gm PO DAILY PRN PRN Reason: Constipation Propofol (Propofol 200 Mg/20 Ml Sdv) Confirm Administered Dose 200 mg .ROUTE .STK-MED ONE Stop: 09/25/20 08:33 Rocuronium Pillow (Rocuronium 50 Mg/5 Ml Vial) Confirm Administered Dose 50 mg .ROUTE .STK-MED ONE Stop: 09/25/20 08:33 Sodium Chloride (Sodium Chloride 0.9% 10 Ml Syringe) 10 ml FLUSH ASDIRECTED PRN PRN Reason: Keep Vein Open Sodium Chloride (Sodium Chloride 0.9% 10 Ml Syringe) 10 ml FLUSH ONETIME ONE Stop: 09/26/20 11:42 Last Admin: 09/26/20 12:48 Dose: 10 ml Documented by: Succinylcholine Chloride (Succinylcholine 200 Mg/10 Ml Mdv) Confirm Administered Dose 200 mg .ROUTE .STK-MED ONE Stop: 09/25/20 08:33 - Exam Quality Assessment: Supplemental Oxygen General: Alert, Oriented, Cooperative, No Acute Distress Lungs: Normal Respiratory Effort, Decreased Breath Sounds (mild right lung base), Crackles (few both bases). No: Wheezing Cardiovascular: Regular Rate, Regular Rhythm GI/Abdominal Exam: Soft, No Distention Extremities: No Pedal Edema. No: Increased Warmth Skin: Warm, Dry Psy/Mental Status: Alert, Normal Affect Sepsis Event Note - Evaluation Sepsis Screening Result: No Definite Risk - Focused Exam Vital Signs: Vital Signs Temp Pulse Resp BP Pulse Ox 09/27/20 07:25 88 09/27/20 07:06 91 L 04/07/21 06:00 36.6 C 95 18 160/79 H 92 L 09/27/20 02:42 37.2 C 95 20 159/90 H 91 L 09/27/20 01:03 93 L 09/27/20 00:48 93 L 09/26/20 22:39 36.5 C 82 16 116/62 92 L Consult PN Assessment/Plan POD#: 2 Problem List Initiated/Reviewed/Updated: Yes My Orders Last 24 Hours: My Active Orders 09/26/20 15:30 Azithromycin [Zithromax] 500 mg PO Q24H Plan: ASSESSMENT AND RECOMMENDATIONS- Probable bilateral lower lung pneumonia-complicated by acute respiratory failure with hypoxia. Doing slightly better today than yesterday but still requiring supplemental oxygen. -Continue azithromycin for total of 5 days -Continue Unasyn -Continue nebulizers -Supplement oxygen as needed, wean as able Acute cholecystitis due to cholelithiasis-status post laparoscopic cholecystectomy and seems to be doing well from a surgical standpoint other than no bowel movement for several days. Tobacco dependence-recently started smoking again about 3 months ago. -encourage cessation Desean Garrett MD
--- NOTE | 2020-09-27 10:07 | PN ---
DATE OF SERVICE: 09/27/2020 SUBJECTIVE: Karely was diagnosed with community-acquired pneumonia oximetry. Oximetry has been 91% to 93% on 3 L. He was on 5 L and maintained at 92% at the time 2239. He was seen by Desean Garrett MD, hospitalist, and started on Zithromax 500 mg p.o. daily. From this Surgery standpoint, he has had 1170 in orally and urine output independent. SHARAD drain was removed. Nursing staff states he has been eating [id number] amounts of food. Karely requests an increase in his pain medication. States he has pain from getting up and standing from his bed and getting up from his chair. He did have 1 bowel movement yesterday. REVIEW OF SYSTEMS: Remainder of review of systems negative for any pertinent positives or negatives. LABORATORY DATA: Labs were drawn. Hemoglobin 13.2, WBC 9, and his potassium was 3.1. OBJECTIVE: GENERAL: Karely Westbrook is a 35-year-old male. He is resting comfortably in bed. He keeps falling asleep. VITAL SIGNS: TPR is 99, 95, 20, blood pressure 159/90, and pulse oximetry was 91% on 3 L of O2. HEENT: Negative. NECK: Supple. HEART: Regular rate and rhythm. LUNGS: Clear. ABDOMEN: Dressings dry and intact. Top dressing where the packing was removed has a small amount of serosanguineous drainage on the 4 x 4 and abdominal binder has been on. EXTREMITIES: Without peripheral edema. ASSESSMENT: 1. Community-acquired pneumonia. 2. Diagnostic laparoscopy with: a. Cholecystectomy. b. Drainage of pericholecystic abscess. c. Repair of incarcerated umbilical hernia. 3. Hypoxia postoperatively. 4. Hypokalemia. POSTOPERATIVE DIAGNOSES: 1. Acute cholecystitis, cholelithiasis with pericholecystic abscess. 2. Incarcerated umbilical hernia. 3. Date of procedure: 09/25/2020. Surgeon: Richard Tapia MD. PLAN: KCl orally 40 mEq t.i.d. today only, Motrin 800 mg scheduled to take q.6 hours with milk or food. Check CBC, CMP in a.m. We will evaluate p.r.n. or in a.m. Yanelis Zarate PA-C /[id number]
[2020-09-27] MEDS: Bisacodyl 5 MG Tab PO SCH ×2 (10:10→20:08)
[2020-09-27] MEDS: Potassium Chloride 20 MEQ Tab.ER PO SCH ×3 (10:11→20:08)
[2020-09-27] MEDS: lamoTRIgine 100 MG Tab PO SCH (10:11)
[2020-09-27] MEDS: busPIRone 10 MG Tab PO SCH ×2 (10:11→20:08)
[2020-09-27] MEDS: ARIPiprazole 10 MG Tab PO SCH (10:12)
[2020-09-27] MEDS: PARoxetine 20 MG Tab PO SCH (10:13)
[2020-09-27] MEDS: Cetirizine 10 MG Tab PO SCH (10:13)
[2020-09-27] MEDS: Docusate Sodium 100 MG Cap PO SCH (10:19)
[2020-09-27] MEDS: Azithromycin 250 MG Tab PO SCH (14:39)
[2020-09-27] MEDS: Pantoprazole 40 MG Tab.CR PO SCH (15:39)
[2020-09-27] MEDS: Zolpidem 5 MG Tab PO SCH (22:39)
[2020-09-28] MEDS: Ibuprofen 800 MG Tab PO SCH ×4 (02:17→13:47)
[2020-09-28] MEDS: Albuterol/Ipratropium 3.0-0.5 MG/3 ML Neb Soln NEB SCH ×3 (02:18→14:10)
[2020-09-28] MEDS: Ampicillin/Sulbactam Na 3 GM in Sodium Chloride 0.9% 100 ML IV SCH ×2 (03:21→11:37)
[2020-09-28] MEDS: oxyCODONE 5 MG Tab PO PRN ×2 (04:29→14:58)
[2020-09-28] MEDS: Cyclobenzaprine 10 MG Tab PO PRN ×2 (04:30→14:58)
[2020-09-28] MEDS: Amphetamine/Dextroamphetamine Salts 10 MG Cap.ER PO SCH (08:21)
[2020-09-28] MEDS: busPIRone 10 MG Tab PO SCH (08:27)
[2020-09-28] MEDS: Docusate Sodium 100 MG Cap PO SCH (08:28)
[2020-09-28] MEDS: Bisacodyl 5 MG Tab PO SCH (08:29)
[2020-09-28] MEDS: lamoTRIgine 100 MG Tab PO SCH (08:29)
[2020-09-28] MEDS: PARoxetine 20 MG Tab PO SCH (08:30)
[2020-09-28] MEDS: ARIPiprazole 10 MG Tab PO SCH (08:42)
[2020-09-28] MEDS: Cetirizine 10 MG Tab PO SCH (08:42)
--- NOTE | 2020-09-28 10:28 | PCM.CONSN ---
- General Info Date of Service: 09/28/20 Subjective Update: No acute events overnight. He is off supplemental oxygen this morning. Cough is better. Abdominal pain is better. No fevers. Functional Status: Reports: Pain Controlled, Tolerating Diet - Review of Systems General: Denies: Fever Pulmonary: Denies: Shortness of Breath Gastrointestinal: Reports: Constipation. Denies: Abdominal Pain - Patient Data Vitals - Most Recent: Last Vital Signs Temp 36.5 C 09/28/20 07:38 Pulse 71 09/28/20 07:38 Resp 20 09/28/20 07:38 BP 141/80 H 09/28/20 07:38 Pulse Ox 93 L 09/28/20 07:38 Weight - Most Recent: 120.928 kg I&O - Last 24 Hours: Intake & Output 09/27/20 09/28/20 09/28/20 22:59 06:59 14:59 Intake Total 1760 790 300 Output Total 200 Balance 1760 790 100 Lab Results Last 24 Hours: Laboratory Results - last 24 hr 09/28/20 09/28/20 Range/Units 04:17 04:17 WBC 5.7 (4.5-11.0) K/uL RBC 4.32 (4.30-5.90) M/uL Hgb 13.2 (12.0-15.0) g/dL Hct 41.8 (40.0-54.0) % MCV 97 (80-98) fL MCH 31 (27-31) pg MCHC 32 (32-36) % Plt Count 245 (150-400) K/uL Sodium 147 (140-148) mmol/L Potassium 4.2 (3.6-5.2) mmol/L Chloride 110 H (100-108) mmol/L Carbon Dioxide 28 (21-32) mmol/L Anion Gap 13.2 (5.0-14.0) mmol/L BUN 9 (7-18) mg/dL Creatinine 0.9 (0.8-1.3) mg/dL Est Cr Clr Drug Dosing 120.85 mL/min Estimated GFR (MDRD) > 60 (>60) Glucose 92 (74-106) mg/dL Calcium 9.0 (8.5-10.1) mg/dL Total Bilirubin 0.4 (0.2-1.0) mg/dL AST 30 D (15-37) U/L ALT 56 (12-78) U/L Alkaline Phosphatase 147 H (46-116) U/L Total Protein 6.3 L (6.4-8.2) g/dL Albumin 2.9 L (3.4-5.0) g/dL Globulin 3.4 (2.3-3.5) g/dL Albumin/Globulin Ratio 0.9 L (1.2-2.2) Serafin Results Last 24 Hours: Microbiology 09/25/20 12:36 Gram Stain - Final Gallbladder Wound Culture - Final Gram Positive Rods Anaerobic Culture - Final NO GROWTH AFTER 3 DAYS Med Orders - Current: Current Medications Acetaminophen (Acetaminophen 325 Mg Tab) 650 mg PO Q4H PRN PRN Reason: Pain Albuterol/Ipratropium (Albuterol/Ipratropium 3.0-0.5 Mg/3 Ml Neb Soln) 3 ml NEB Q6H [facility] Last Admin: 09/28/20 08:21 Dose: Not Given Documented by: Albuterol/Ipratropium (Albuterol/Ipratropium 3.0-0.5 Mg/3 Ml Neb Soln) 3 ml NEB Q4H PRN PRN Reason: Dyspnea Amphetamine/Dextroamphetamine (Amphetamine/Dextroamphetamine Salts 10 Mg Cap.Er) 20 mg PO DAILY@0800 [facility] Last Admin: 09/28/20 08:21 Dose: Not Given Documented by: Aripiprazole (Aripiprazole 10 Mg Tab) 2.5 mg PO DAILY [facility] Last Admin: 09/28/20 08:42 Dose: 2.5 mg Documented by: Azithromycin (Azithromycin 250 Mg Tab) 500 mg PO Q24H [facility] Stop: 09/30/20 15:31 Last Admin: 09/27/20 14:39 Dose: 500 mg Documented by: Bisacodyl (Bisacodyl 5 Mg Tab) 10 mg PO BID [facility] Last Admin: 09/28/20 08:29 Dose: 10 mg Documented by: Buspirone HCl (Buspirone 10 Mg Tab) 30 mg PO BID [facility] Last Admin: 09/28/20 08:27 Dose: 30 mg Documented by: Calcium Carbonate/Glycine (Calcium Carbonate 500 Mg Tab.Chew) 1,000 mg PO Q2H PRN PRN Reason: Indigestion Last Admin: 09/26/20 14:00 Dose: 1,000 mg Documented by: Cetirizine HCl (Cetirizine 10 Mg Tab) 10 mg PO DAILY [facility] Last Admin: 09/28/20 08:42 Dose: 10 mg Documented by: Cyclobenzaprine HCl (Cyclobenzaprine 10 Mg Tab) 10 mg PO Q6H PRN PRN Reason: muscle spasms Last Admin: 09/28/20 04:30 Dose: 10 mg Documented by: Docusate Sodium (Docusate Sodium 100 Mg Cap) 100 mg PO DAILY [facility] Last Admin: 09/28/20 08:28 Dose: 100 mg Documented by: Ampicillin Sodium/Sulbactam (Sodium 3 gm/ Sodium Chloride) 100 mls @ 200 mls/hr IV Q6HR [facility] Last Admin: 09/28/20 03:21 Dose: 200 mls/hr Documented by: Aztreonam 1 gm/ Sodium (Chloride) 50 mls @ 100 mls/hr IV Q8H [facility] Last Admin: 09/28/20 02:17 Dose: 100 mls/hr Documented by: Ibuprofen (Ibuprofen 800 Mg Tab) 800 mg PO Q6H [facility] Last Admin: 09/28/20 08:23 Dose: 800 mg Documented by: Lamotrigine (Lamotrigine 100 Mg Tab) 500 mg PO DAILY [facility] Last Admin: 09/28/20 08:29 Dose: 500 mg Documented by: Morphine Sulfate (Morphine 2 Mg/Ml Syringe) 2 mg IVPUSH Q2H PRN PRN Reason: MODERATE PAIN Last Admin: 09/26/20 00:23 Dose: 2 mg Documented by: Morphine Sulfate (Morphine 4 Mg/Ml Syringe) 4 mg IVPUSH Q2H PRN PRN Reason: SEVERE PAIN Last Admin: 09/25/20 15:07 Dose: 4 mg Documented by: Ondansetron HCl (Ondansetron 4 Mg/2 Ml Sdv) 4 mg IV Q4H PRN PRN Reason: Nausea/Vomiting Last Admin: 09/24/20 19:28 Dose: 4 mg Documented by: Oxycodone HCl (Oxycodone 5 Mg Tab) 5 mg PO Q4H PRN PRN Reason: Pain Last Admin: 09/28/20 04:29 Dose: 5 mg Documented by: Pantoprazole Sodium (Pantoprazole 40 Mg Tab.Cr) 40 mg PO Q24H [facility] Last Admin: 09/27/20 15:39 Dose: 40 mg Documented by: Paroxetine HCl (Paroxetine 20 Mg Tab) 60 mg PO DAILY [facility] Last Admin: 09/28/20 08:30 Dose: 60 mg Documented by: Sodium Chloride (Sodium Chloride 0.9% 10 Ml Syringe) 10 ml IV ASDIRECTED PRN 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 Zolpidem Tartrate (Zolpidem 5 Mg Tab) 10 mg PO BEDTIME [facility] Last Admin: 09/27/20 22:39 Dose: 10 mg Documented by: Discontinued Medications Acetaminophen (Acetaminophen 325 Mg Tab) 650 mg PO Q4H PRN PRN Reason: Pain (Mild 1-3)/fever Last Admin: 09/25/20 07:24 Dose: 650 mg Documented by: Hydrocodone Bitart/Acetaminophen (Acetaminophen/Hydrocodone 325-5 Mg Tab) 1 - 2 tab PO Q4H PRN PRN Reason: PAIN Last Admin: 09/26/20 05:33 Dose: 2 tab Documented by: Aztreonam (Aztreonam 1 Gm Vial) Confirm Administered Dose 1 gm .ROUTE .STK-MED ONE Stop: 09/25/20 11:38 Last Admin: 09/25/20 11:30 Dose: 1 gm Documented by: Bupivacaine HCl/Epinephrine Bitart (Bupivacaine 0.5%/Epinephrine 1:200,000 50 Ml Mdv) Confirm Administered Dose 50 ml .ROUTE .STK-MED ONE Stop: 09/25/20 09:47 Last Admin: 09/25/20 11:45 Dose: 20 ml Documented by: Ropivacaine 60 ml/Dexamethasone 8 mg/Epinephrine HCl 0.4 mg/ Sodium Chloride 17.6 ml 0 ml NERVRT ASDIRECTED [facility] Last Admin: 09/25/20 11:13 Dose: 80 syringe Documented by: Dexamethasone (Dexamethasone 4 Mg/Ml Sdv) Confirm Administered Dose 4 mg .ROUTE .STK-MED ONE Stop: 09/25/20 08:33 Fentanyl (Fentanyl 250 Mcg/5 Ml Sdv) Confirm Administered Dose 250 mcg .ROUTE .STK-MED ONE Stop: 09/25/20 08:33 Fentanyl (Fentanyl 250 Mcg/5 Ml Sdv) Confirm Administered Dose 250 mcg .ROUTE .STK-MED ONE Stop: 09/25/20 10:57 Fentanyl (Fentanyl 100 Mcg/2 Ml Sdv) Confirm Administered Dose 100 mcg .ROUTE .STK-MED ONE Stop: 09/25/20 11:22 Furosemide (Furosemide 20 Mg/2 Ml Vial) 20 mg IVPUSH ONETIME ONE Stop: 09/26/20 11:46 Last Admin: 09/26/20 13:06 Dose: 20 mg Documented by: Furosemide (Furosemide 20 Mg/2 Ml Vial) 20 mg IVPUSH ONETIME ONE Stop: 09/26/20 18:01 Last Admin: 09/26/20 17:17 Dose: 20 mg Documented by: Glycopyrrolate (Glycopyrrolate 0.2 Mg/Ml 5 Ml Mdv) Confirm Administered Dose 1 mg .ROUTE .STK-MED ONE Stop: 09/25/20 08:33 Hydromorphone HCl (Hydromorphone 0.5 Mg/0.5 Ml Syringe) 0.5 mg IVPUSH Q2H PRN PRN Reason: Pain Last Admin: 09/25/20 07:40 Dose: 0.5 mg Documented by: Hydroxyzine HCl (Hydroxyzine Hcl 100 Mg/2 Ml Sdv) 100 mg IM ONETIME ONE Stop: 09/25/20 08:01 Last Admin: 09/25/20 12:59 Dose: Not Given Documented by: Lactated Ringer's (Ringers, Lactated) 1,000 mls @ 125 mls/hr IV ASDIRECTED [facility] Last Admin: 09/25/20 02:07 Dose: 125 mls/hr Documented by: Lactated Ringer's (Ringers, Lactated) Confirm Administered Dose 1,000 mls @ as directed .ROUTE .STK-MED ONE Stop: 09/25/20 10:56 Dextrose/Lactated Ringer's (Dextrose 5%-Lactated Ringers) 1,000 mls @ 125 mls/hr IV ASDIRECTED [facility] Last Admin: 09/26/20 00:30 Dose: 125 mls/hr Documented by: Dextrose/Lactated Ringer's (Dextrose 5%-Lactated Ringers) 1,000 mls @ 100 mls/hr IV ASDIRECTED [facility] Last Admin: 09/26/20 10:09 Dose: 100 mls/hr Documented by: Sodium Chloride (Normal Saline) 100 mls @ 4 mls/sec IV ASDIRECTED [facility] Stop: 09/26/20 19:00 Last Admin: 09/26/20 12:48 Dose: 4 mls/sec Documented by: Iopamidol (Iopamidol 755 Mg/Ml 100 Ml Bottle) 100 ml IV . DIRECTED [facility] Stop: 09/26/20 19:00 Last Admin: 09/26/20 12:48 Dose: 100 ml Documented by: Labetalol HCl (Labetalol 20 Mg/4 Ml Syringe) Confirm Administered Dose 20 mg .ROUTE .STK-MED ONE Stop: 09/25/20 11:41 Neostigmine Methylsulfate (Neostigmine Methylsulfate 1 Mg/Ml 5 Ml Syringe) Confirm Administered Dose 5 mg .ROUTE .STK-MED ONE Stop: 09/25/20 08:33 Nicotine (Nicotine 14 Mg/24 Hr Patch) 14 mg TRDERM DAILY [facility] Last Admin: 09/25/20 13:03 Dose: Not Given Documented by: Ondansetron HCl (Ondansetron 4 Mg/2 Ml Sdv) Confirm Administered Dose 4 mg .ROUTE .STK-MED ONE Stop: 09/25/20 08:33 Pantoprazole Sodium (Pantoprazole 40 Mg Vial) 40 mg IVPUSH Q24H [facility] Last Admin: 09/25/20 17:30 Dose: 40 mg Documented by: Polyethylene Glycol (Polyethylene Glycol 3350 Powder 17 Gm Packet) 17 gm PO DAILY PRN PRN Reason: Constipation Potassium Chloride (Potassium Chloride 20 Meq Tab.Er) 40 meq PO TID [facility] Stop: 09/27/20 23:59 Last Admin: 09/27/20 20:08 Dose: 40 meq Documented by: Propofol (Propofol 200 Mg/20 Ml Sdv) Confirm Administered Dose 200 mg .ROUTE .STK-MED ONE Stop: 09/25/20 08:33 Rocuronium [place] (Rocuronium 50 Mg/5 Ml Vial) Confirm Administered Dose 50 mg .ROUTE .STK-MED ONE Stop: 09/25/20 08:33 Sodium Chloride (Sodium Chloride 0.9% 10 Ml Syringe) 10 ml FLUSH ASDIRECTED PRN PRN Reason: Keep Vein Open Sodium Chloride (Sodium Chloride 0.9% 10 Ml Syringe) 10 ml FLUSH ONETIME ONE Stop: 09/26/20 11:42 Last Admin: 09/26/20 12:48 Dose: 10 ml Documented by: Succinylcholine Chloride (Succinylcholine 200 Mg/10 Ml Mdv) Confirm Administered Dose 200 mg .ROUTE .STK-MED ONE Stop: 09/25/20 08:33 - Exam Quality Assessment: No: Supplemental Oxygen General: Alert, Oriented, Cooperative, No Acute Distress Lungs: Normal Respiratory Effort GI/Abdominal Exam: Soft, No Distention Extremities: No Pedal Edema Skin: Warm, Dry Psy/Mental Status: Alert, Normal Affect Sepsis Event Note - Evaluation Sepsis Screening Result: No Definite Risk - Focused Exam Vital Signs: Vital Signs Temp Pulse Resp BP Pulse Ox 09/28/20 07:38 36.5 C 71 20 141/80 H 93 L 09/28/20 07:31 93 L 09/28/20 04:15 96 09/28/20 00:41 94 L 09/27/20 22:40 36.3 C 84 16 139/81 93 L Consult PN Assessment/Plan Problem List Initiated/Reviewed/Updated: Yes Plan: ASSESSMENT AND RECOMMENDATIONS- Probable bilateral lower lung pneumonia-complicated by acute respiratory failure with hypoxia. Off oxygen and doing better. -Continue azithromycin 500 mg for total of 5 days (end after dose on 09/30) -Continue nebulizers -Supplement oxygen as needed Acute cholecystitis due to cholelithiasis-status post laparoscopic cholecystectomy and seems to be doing well from a surgical standpoint other than no bowel movement yet. -post-op care per surgical team Tobacco dependence-recently started smoking again about 3 months ago. -encourage cessation Desean Garrett MD
--- NOTE | 2020-09-28 12:39 | PN ---
DATE OF SERVICE: 09/28/2020 SUBJECTIVE: Karely had trials with his oxygen off and it has improved. He has been off oxygen since 414 today and his O2 sats by pulse oximetry was 96%, 93%, and 93%. He continues to report he has pain surgically. White count today was 5.7 and he has been afebrile. REVIEW OF SYSTEMS: Remainder of review of systems negative for any pertinent positives and negatives. OBJECTIVE: GENERAL: Karely is a 35-year-old male. VITAL SIGNS: TPR is 97.7, 71, 20, blood pressure 141/80. HEENT: Negative. NECK: Supple. HEART: Regular rate and rhythm. LUNGS: Revealed decreased breath sounds in bases. ABDOMEN: Dressings dry and intact. Abdominal binder is on. EXTREMITIES: Without peripheral edema. ASSESSMENT: 1. Community-acquired pneumonia. He was admitted with a pneumonia. 2. Diagnostic laparoscopy with: a. Cholecystectomy. b. Drainage of pericholecystic abscess. c. Repair of incarcerated umbilical hernia. 3. Hypoxia postoperatively. 4. Hypokalemia, resolved. POSTOPERATIVE DIAGNOSES: 1. Acute cholecystitis, cholelithiasis with pericholecystic abscess. 2. Incarcerated umbilical hernia. Date of procedure 09/25/2020. Surgeon: Richard Tapia MD. PLAN: Continue to wean off oxygen if tolerated. Plan discharge in a.Lorrie Zarate PA-C /[id number]
[2020-09-28] MEDS: Azithromycin 250 MG Tab PO SCH (14:58)
--- NOTE | 2020-10-02 17:57 | OR ---
DATE OF PROCEDURE: 09/25/2020 SURGEON: Richard Tapia MD PREOPERATIVE DIAGNOSIS: Acute cholecystitis. POSTOPERATIVE DIAGNOSES: 1. Acute cholecystitis and cholelithiasis with pericholecystic abscess. 2. Incarcerated umbilical hernia. OPERATIVE PROCEDURES: Diagnostic laparoscopy with: 1. Cholecystectomy (26814). 2. Drainage of pericholecystic abscess (03695). 3. Repair of incarcerated umbilical hernia (55400). ANESTHESIA: General. DIRECTOR MARKET RESEARCH: Yanelis Zarate PA-C INDICATIONS FOR PROCEDURE: This is a 35-year-old male admitted overnight with a picture of an acute cholecystitis. Plan is to proceed with a laparoscopic or if necessary open cholecystectomy. Potential risks including bleeding, infection, injury to underlying viscera such as common bile duct, possible migration of stones in the common bile duct requiring additional procedures for correction were gone over and the patient wishes to proceed. DETAILS OF PROCEDURE: The patient was taken to the operating room, placed in a supine position. After general endotracheal anesthesia was induced, a small transverse incision was made just below the umbilicus. Dissection then revealed an incarcerated umbilical hernia with this containing some preperitoneal fat. The 12 mm trocar was then placed directly through the hernia defect thus displacing the incarcerated components back into the intraperitoneal location. In the peritoneal cavity, inflated with 15 mmHg pressure with CO2. Laparoscope was reinserted. No underlying trocar insertion site injuries were seen. Following this, 12 mm epigastric trocar was placed along with a 5 mm right abdominal trocar and the gallbladder was noted to be markedly edematous and acutely inflamed. There were some loose adhesions between the gallbladder and omentum which were taken down bluntly. The gallbladder was then retracted anteriorly and laterally. The dissection began on the gallbladder neck with Harmonic scalpel, continued around the gallbladder neck and cystic duct junction. Once that area along with the adjacent cystic artery were both identified, we elected to take these with surgical staple using ELIGIO purple load as the tissues were quite thickened and edematous, and this would provide a more secure closure. This was then accomplished, and as then one began dissecting the gallbladder off the gallbladder bed, an area of abscess formation between the liver and the gallbladder was identified. Cultures of this were obtained, and as the abscess was drained, further dissection of the gallbladder off the gallbladder bed was then accomplished and the gallbladder was delivered through the epigastric trocar site. This may be widened somewhat due to the large diameter of the gallbladder even with stones having been evacuated. The area of dissection was then inspected. No further bleeding or other problems were noted. A Stephen-Montoya drain was taken through the right lateral trocar site and positioned adjacent to the gallbladder bed and pericholecystic abscess area. Camera was then brought up to the epigastric site, and using the laparoscopic suture passer, 0 Vicryl sutures were placed closing the umbilical hernia in a transverse orientation. Once these were in place and tied, and it was confirmed that there was no remaining incarcerated component within the hernia closure site, additional stitch was placed in the epigastric fascial area with same 0 Vicryl stitch and the trocars were removed and peritoneal cavity deflated. Incisions were closed with some 4-0 Vicryl skin stitch other than the epigastric site which was packed open with Iodoform gauze due to high likelihood of infection if it were closed primarily. The patient was taken to the recovery room in satisfactory condition. There were no evident complications. Physician recreational assistant, Yanelis Zarate, played an essential role in assisting in this case, helping to position the patient, retract structures as needed, as well as suturing and cutting sutures when indicated. Her presence improved patient safety and decreased operative time. Richard Tapia MD /[id number]
--- NOTE | 2020-10-03 17:27 | DISCH ---
FINAL DIAGNOSES: 1. Acute cholecystitis with pericholecystic abscess formation. 2. Incarcerated umbilical hernia. 3. Probable preadmission pneumonia secondary to abdominal pain and recent coronavirus disease infection. 4. Tobacco dependence. 5. History of asthma. 6. History of anxiety and depression. OPERATIVE PROCEDURES: This was done on 09/25/2020, diagnostic laparoscopy with: 1. Cholecystectomy. 2. Drainage of pericholecystic abscess. 3. Repair of incarcerated umbilical hernia. SUMMARY: This is a 35-year-old male presenting with a picture of an acute cholecystitis. Following admission, the patient underwent a laparoscopic cholecystectomy with concurrent drainage of pericholecystic abscess and repair of incarcerated umbilical hernia identified at the time of the periumbilical trocar placement. Postoperatively from a cholecystectomy standpoint, the patient did well. He did have the epigastric incision left open and had a drain in place which was removed prior to discharge. In the postoperative period, the patient was noted to be progressively hypoxic when off any supplemental oxygen. Dr. Garrett of the Internal Medicine Department was consulted who felt the patient likely had a preexisting underlying pneumonia related most likely to the abdominal pain and relatively poor secretions and perhaps associated with the patient's recent COVID infection, and for that, the patient was started on Zithromax. He did have a CT scan which showed no pulmonary embolism, but did show some underlying lung pathology consistent with the above diagnoses. On 09/28/2020, the patient was noted at that point to be free of oxygen throughout the day and was felt at that point ready for discharge. He will be sent home on his usual medications. He has completed enough of the antibiotics for the gallbladder at this point. We will be giving an additional 5-day course of Zithromax orally to consolidate the pulmonary treatment. Otherwise, he will be on his usual medications plus ibuprofen, oxycodone, and Tylenol, and as mentioned above the Zithromax. Followup will be with Dr. Tapia at [facility] on 10/04/2020. /[id number]
== END 2020-09-28 15:30 | disposition home or self-care (01) | DRG 417 ==
LOC: JP.MS 17:52
PROVIDERS: ADMIT Hospitalist; ATTEND Surgery
PROC: 0FT44ZZ Resection of Gallbladder, Percutaneous Endoscopic Approach (ICD-10-PCS; principal; 2020-09-24)
PROC: 0WQF4ZZ Repair Abdominal Wall, Percutaneous Endoscopic Approach (ICD-10-PCS; 2020-09-24)
PROC: 0W9G4ZZ Drainage of Peritoneal Cavity, Percutaneous Endoscopic Approach (ICD-10-PCS; 2020-09-24)
DX: K80.00 Calculus of gallbladder with acute cholecystitis without obstruction (principal); J18.9 Pneumonia, unspecified organism; J96.01 Acute respiratory failure with hypoxia; K42.0 Umbilical hernia with obstruction, without gangrene; F41.9 Anxiety disorder, unspecified; F31.9 Bipolar disorder, unspecified; Z20.822 Contact with and (suspected) exposure to COVID-19; F17.200 Nicotine dependence, unspecified, uncomplicated; E87.6 Hypokalemia; Z88.2 Allergy status to sulfonamides; Z79.899 Other long term (current) drug therapy; Z86.16 Personal history of COVID-19; Z71.6 Tobacco abuse counseling
CPT/HCPCS: 0241U; 36415; 71275; 80048; 80053; 82247; 84075; 85025; 85027; 87070; 87075; 87077; 87205; 88304; 94640; 94667; 94762; 99222; 99231; 99232; A9270-GY; C9113; J0171; J0295; J0330; J1100; J1170; J1940; J2270; J2405; J2704; J2710; J2795; J3010; J3490; J7120; J7121; J7620-GY; Q9967

== ENCOUNTER 2020-12-11 19:16 | Emergency (ER) | payer MEDICARE, MEDICAID ==
[2020-12-11] MEDS ORDERED: Dexamethasone 4 MG/ML SDV IVPUSH ONE (19:18)
[2020-12-11] MEDS ORDERED: Famotidine 20 MG/2 ML SDV IVPUSH ONE (19:19)
[2020-12-11] MEDS ORDERED: EPINEPHrine 1 MG/ML SDV IM ONE (19:20)
[2020-12-11] MEDS ORDERED: Sodium Chloride 0.9% 10 ML Syringe FLUSH PRN (19:21)
--- NOTE | 2020-12-11 19:25 | EDM.PDOC ---
ED HPI GENERAL MEDICAL PROBLEM - General Chief Complaint: Allergic Reaction Stated Complaint: [facility] Time Seen by Provider: 12/11/20 19:22 Source of Information: Reports: Patient, EMS, RN History Limitations: Reports: No Limitations - History of Present Illness INITIAL COMMENTS - FREE TEXT/NARRATIVE: Karely is a 35 year old male whom present to ER for concern regarding acute allergic reaction this evening after eating a rice crispy bar with nuts, not labels per patient. Karely started having fullness in his throat and tightness in his chest. Karely was given 50mg Benadryl at detox facility, which he is currently an in patient treatment. Karely was given Epi 0.5mg IM by EMS whom also placed IV access. - Related Data Allergies Allergy/AdvReac Type Severity Reaction Status Date / Time peanut Allergy Airway Verified 12/11/20 19:22 Tightness Sulfa (Sulfonamide Allergy Cannot Verified 09/24/20 09:30 Antibiotics) Remember Home Meds: Home Meds ARIPiprazole [Abilify] 2 mg PO DAILY 09/24/20 [History] Naproxen 375 mg PO DAILY 09/24/20 [History] Omeprazole 40 mg PO DAILY 09/24/20 [History] PARoxetine [Paxil] 60 mg PO DAILY 09/24/20 [History] busPIRone [Buspar] 30 mg PO BID 09/24/20 [History] lamoTRIgine [Lamictal] 2.5 tab PO DAILY 09/24/20 [History] EPINEPHrine [Epipen 2-Vaughn] 0.3 mg IJ DAILY PRN 30 Days #2 ml 12/11/20 [Rx] Famotidine [Pepcid] 20 mg PO BID 10 Days #20 tab 12/11/20 [Rx] cloNIDine [Catapres-TTS 3] 0.3 mg PO DAILY 12/11/20 [History] diphenhydrAMINE [Benadryl] 25 - 50 mg PO Q8H PRN 7 Days #30 cap 12/11/20 [Rx] Past Medical History HEENT History: Reports: Allergic Rhinitis Cardiovascular History: Reports: None Respiratory History: Reports: None Gastrointestinal History: Reports: Irritable Bowel Syndrome Genitourinary History: Reports: None Musculoskeletal History: Reports: None Neurological History: Reports: None Psychiatric History: Reports: ADHD, Anxiety, Bipolar, Depression Endocrine/Metabolic History: Reports: None Hematologic History: Reports: None Immunologic History: Reports: None Oncologic (Cancer) History: Reports: None Dermatologic History: Reports: None - Infectious Disease History Infectious Disease History: Reports: None - Past Surgical History Head Surgeries/Procedures: Reports: None HEENT Surgical History: Reports: None Cardiovascular Surgical History: Reports: None Respiratory Surgical History: Reports: None GI Surgical History: Reports: None Male Surgical History: Reports: None Endocrine Surgical History: Reports: None Neurological Surgical History: Reports: None Musculoskeletal Surgical History: Reports: None Oncologic Surgical History: Reports: None Dermatological Surgical History: Reports: None Social & Family History - Family History Respiratory: Reports: COPD - Caffeine Use Caffeine Use: Reports: Coffee ED ROS ALLERGIC REACTION - Review of Systems Review Of Systems: Comprehensive ROS is negative, except as noted in HPI. ED EXAM GENERAL NO PERIP PULSE - Physical Exam Exam: See Below Exam Limited By: No Limitations General Appearance: Alert, WD/WN, No Apparent Distress Eye Exam: Bilateral Eye: EOMI, Normal Inspection Ears: Hearing Grossly Normal Throat/Mouth: Normal Inspection, Normal Voice, No Airway Compromise, Other (slight edema soft palette noted. ) Neck: Normal Inspection, Supple Respiratory/Chest: No Respiratory Distress, Lungs Clear, Normal Breath Sounds. No: Crackles, Wheezing Cardiovascular: Normal Peripheral Pulses, Regular Rate, Rhythm GI/Abdominal: Normal Bowel Sounds, Soft, Non-Tender, Tender (general discomfort (focused over) epigastric area ). No: Guarding, Rigid, Rebound Extremities: Normal Inspection Neurological: Alert, Oriented, CN II-XII Intact Psychiatric: Normal Affect, Anxious Skin Exam: Warm, Dry, Intact, Normal Color, No Rash. No: Cool, Diaphoretic, Increased Warmth, Pallor, Rash #1 Interpretation EKG Date: 12/11/20 Time: 19:28 Rhythm: NSR Rate (Beats/Min): 84 [place]: LAD-Left Clifton Deviation P-Wave: Present QRS: Normal ST-T: Other (early repolarization) QT: Normal Comparison: NA - No Prior EKG Course - Vital Signs Last Recorded V/S: Last Vital Signs Temp 36.6 C 12/11/20 19:41 Pulse 81 12/11/20 19:41 Resp 23 H 12/11/20 19:41 BP 120/62 12/11/20 20:36 Pulse Ox 95 12/11/20 19:41 - Orders/Labs/Meds Orders: Active Orders 24 hr Category Date Time Status Cardiac Monitoring [RC] .As Directed Care 12/11/20 19:21 Active EKG Documentation Completion [RC] ASDIRECTED Care 12/11/20 19:24 Active Peripheral IV Care [RC] . DIRECTED Care 12/11/20 19:21 Active Vital Signs [RC] PFP Care 12/11/20 19:21 Active Sodium Chloride 0.9% [Saline Flush] Med 12/11/20 19:21 Active 10 ml FLUSH ASDIRECTED PRN Peripheral IV Insertion Adult [OM.PC] Urgent Oth 12/11/20 19:21 Ordered EKG 12 Lead [EK] Urgent Ther 12/11/20 19:24 Ordered Medication Orders Sodium Chloride (Sodium Chloride 0.9% 10 Ml Syringe) 10 ml FLUSH ASDIRECTED PRN PRN Reason: Keep Vein Open Last Admin: 12/11/20 19:32 Dose: 10 ml Documented by: RU Meds: Medications Generic Name Dose Route Start Last Admin Trade Name Frejakub PRN Reason Stop Dose Admin Sodium Chloride 10 ml 12/11/20 19:21 12/11/20 19:32 Sodium Chloride 0.9% 10 Ml Syringe FLUSH 10 ml ASDIRECTED PRN Administration Keep Vein Open Discontinued Medications Generic Name Dose Route Start Last Admin Trade Name Freq PRN Reason Stop Dose Admin Buspirone HCl 30 mg 12/11/20 20:26 12/11/20 20:36 Buspirone 10 Mg Tab PO 12/11/20 20:27 30 mg ONETIME ONE Administration Clonidine HCl 0.3 mg 12/11/20 20:27 12/11/20 20:36 Clonidine 0.1 Mg Tab PO 12/11/20 20:28 0.3 mg ONETIME ONE Administration Clonidine HCl Confirm 12/11/20 20:34 Clonidine 0.1 Mg Tab Administered 12/11/20 20:35 Dose 0.3 mg .ROUTE .STK-MED ONE Dexamethasone 10 mg 12/11/20 19:18 12/11/20 19:32 Dexamethasone 4 Mg/Ml Sdv IVPUSH 12/11/20 19:19 10 mg ONETIME ONE Administration Epinephrine HCl 0.5 mg 12/11/20 19:20 12/11/20 20:50 Epinephrine 1 Mg/Ml Sdv IM 12/11/20 19:21 Not Given ONETIME ONE Famotidine 20 mg 12/11/20 19:19 12/11/20 19:32 Famotidine 20 Mg/2 Ml Sdv IVPUSH 12/11/20 19:20 20 mg ONETIME ONE Administration - Re-Assessments/Exams Free Text/Narrative Re-Assessment/Exam: 12/11/20 20:14 Karely reports slight worsen symptoms before IV push medications given. Karely is feeling anxious form EPI and declined repeat dose despite worsening chest tightness and fullness in throat. Karely was given IV pepcid and Decadron and noted an improvement of symptoms but if recurrence will reconsider repeat epi IM dosing. 12/11/20 21:07 Karely is doing well watching TV with resolution of throat, chest and GI concerns. Waiting for ride from [facility]tery this evening. Departure - Departure Time of Disposition: 21:17 Disposition: Home, Self-Care 01 Clinical Impression: Allergic reaction - Discharge Information Prescriptions: diphenhydrAMINE [Benadryl] 25 - 50 mg PO Q8H PRN 7 Days #30 cap PRN Reason: Allergies EPINEPHrine [Epipen 2-Vaughn] 0.3 mg IJ DAILY PRN 30 Days #2 ml PRN Reason: Allergies Famotidine [Pepcid] 20 mg PO BID 10 Days #20 tab Instructions: Epinephrine injection, Food Choices for Tree Nut Allergy, Adult, Anaphylactic Reaction, Adult, Food Allergy, Food Choices for Peanut Allergy, Adult Referrals: PCP,None [Primary Care Provider] - Forms: ED Department Discharge Additional Instructions: 1. Continue current medications as prescribed. 2. Pepcid 20mg every am and pm x 10 days for allergic reaction. 3. Benadryl 25-50 mg every 6-8 hrs as needed for residual allergy symptoms, if needed. 4. EPI pen 0.3ml auto injector if recurrence of acute allergic reaction due to allergen exposure with symptoms of throat swelling, shortness of breath, chest tightness or GI concerns to prevent life threatening reaction. Sepsis Event Note (ED) - Focused Exam Vital Signs: Vital Signs Temp Pulse Resp BP BP Pulse Ox 12/11/20 20:36 120/62 12/11/20 19:41 36.6 C 81 23 H 95 12/11/20 19:18 36.6 C 81 16 122/67 97 - My Orders Last 24 Hours: My Active Orders 12/11/20 19:21 Cardiac Monitoring [RC] .As Directed Peripheral IV Care [RC] . DIRECTED Vital Signs [RC] PFP Sodium Chloride 0.9% [Saline Flush] 10 ml FLUSH ASDIRECTED PRN Peripheral IV Insertion Adult [OM.PC] Urgent 12/11/20 19:24 EKG Documentation Completion [RC] ASDIRECTED EKG 12 Lead [EK] Urgent - Assessment/Plan Last 24 Hours: My Active Orders 12/11/20 19:21 Cardiac Monitoring [RC] .As Directed Peripheral IV Care [RC] . DIRECTED Vital Signs [RC] PFP Sodium Chloride 0.9% [Saline Flush] 10 ml FLUSH ASDIRECTED PRN Peripheral IV Insertion Adult [OM.PC] Urgent 12/11/20 19:24 EKG Documentation Completion [RC] ASDIRECTED EKG 12 Lead [EK] Urgent
[2020-12-11] MEDS ORDERED: busPIRone 10 MG Tab PO ONE (20:26)
[2020-12-11] MEDS ORDERED: cloNIDine 0.1 MG Tab PO ONE (20:27)
[2020-12-11] MEDS ORDERED: cloNIDine 0.1 MG Tab ONE (20:34)
== END 2020-12-11 22:26 | disposition home or self-care (01) ==
LOC: JP.ED 19:16
DX: T78.1XXA Other adverse food reactions, not elsewhere classified, initial encounter (principal); Z91.010 Allergy to peanuts; Z88.2 Allergy status to sulfonamides; Z79.899 Other long term (current) drug therapy
CPT/HCPCS: 93005; 96374; 96375; 99285; A9270; J1100; J3490; 93010; 99283